=== PATIENT | female | born 1990 | race Caucasian/White ===

== ENCOUNTER → 2016-10-26 | Outpatient (CLI) | payer BC ==
[~2016-10-26] MED LIST: AMOX-358 PO; AMPI500C9 PO; DCS100C PO; DICL500C; DOCU100C37 PO; HYDR-3720 PO; IBUP-1780 PO; Ibuprofen PO; KETO10TA PO; LACT1CAP8 PO; OXYC-465 PO; PREN1TAB25 PO; SMT80CT PO
== END ==
LOC: LAB 19:39
PROVIDERS: ATTEND Nurse Practitioner Family
DX: R30.0 Dysuria (principal)
CPT/HCPCS: 87088

== ENCOUNTER 2016-10-30 19:02 | Emergency (ER) | payer BC, MEDICAID ==
[~2016-10-30] VITALS: Ht 175.3 cm; Wt 61.2 kg
[~2016-10-30 19:02] MED LIST changes: -AMPI500C9 PO; -KETO10TA PO; -LACT1CAP8 PO
[2016-10-30 19:42] LABS: BILIRUBIN,URINE NEGATIVE (NEGATIVE); KETONES,URINE NEGATIVE (NEGATIVE); LEUKOCYTE ESTERASE ,URINE NEGATIVE (NEGATIVE); NITRITE,URINE NEGATIVE (NEGATIVE); PH,URINE 7 (5-9); PROTEIN,URINE NEGATIVE (NEGATIVE); UROBILINOGEN,URINE NORMAL (NORMAL)
[2016-10-30] MEDS ORDERED: KETOROLAC 30 MG/ML VIAL IVP STA (19:59)
[2016-10-30] MEDS ORDERED: LACTATED RINGERS 1,000 ML IV ONE ×2 (19:59→20:10)
[2016-10-30 20:00] LABS: SQUAMOUS EPITHELIAL CELL,UR 0-2 /HPF
--- NOTE | 2016-10-30 20:06 | ED GU-Female ---
General Chief Complaint: -Female Stated Complaint: LOWER ABD AND BACK PAIN, CHILLS Nursing Triage Note: c/o urinary symptoms x 2 weeks. Pt was seen recently as [facility] and started on Bactrim but states no improvment. Nursing Sepsis Screen: No Definite Risk Source: patient History of Present Illness Time seen by provider: 19:22 Initial Comments PT C/O UTI SYMPTOMS FOR 2 WEEKS HAS HAD CHRONIC UTI'S ALL OF HER LIFE HAS BEEN TO DR. CAMPOS AND CYSTOSCOPY DONE. HAS BEEN PRESCRIBED MACROBID AFTER INTERCOURSE, BUT OTHERWISE NO MAINTENANCE ANTIBIOTICS. HAS NOT HAD INTERCOURSE RECENTLY, SO HAS NOT USED ANY MACROBID STATES SHE HAS LOWER ABDOMINAL PAIN, AND STARTED WITH RIGHT FLANK PAIN AND NOW BILATERAL FLANK PAIN--IS PT'S NORMAL UTI SYMPTOMS NO BURNING, URGENCY OR FREQUENCY, BUT THIS IS NORMAL FOR PT TO NOT HAVE THOSE SYMPTOMS WITH UTI'S WAS SEEN AT [facility] ON Tuesday10/27/16, AND WAS GIVEN RX FOR BACTRIM X 7 DAYS SYMPTOMS ARE GETTING WORSE, AND HAS BEEN HAVING CHILLS ALL DAY NO NAUSEA/VOMITING\ FEELS VERY CONSTIPATED, BUT DID HAVE A NORMAL BM TODAY PCP: DR. WAN--HAS NOT SEEN IN A COUPLE OF YEARS UROLOGIST: DR. CAMPOS--HAS NOT SEEN IN QUITE SOME TIME Allergies and Home Medications Allergies Coded Allergies: No Known Drug Allergies (Unverified , 02/03/14) Home Medications Amoxicillin/Potassium Clav 1 Each Tablet, 1 EACH PO BID, #20 Ref 0 Prescribed by: CONSTANTINO MENENDEZ on 01/07/16 1422 Ampicillin Trihydrate 500 Mg Capsule, 500 MG PO TID, #45 FOR INFECTION Prescribed by: DILCIA DENTON on 10/30/16 2133 Dicloxacillin Sodium 500 Mg Capsule, #21 (Reported) Docusate Sodium 100 Mg Capsule, 100 MG PO BID, #60 Prescribed by: CRISTIAN MACDONALD on 01/01/16 0754 Ibuprofen 800 Mg Tablet, 800 MG PO Q6H, #60 Prescribed by: CRISTIAN MACDONALD on 01/01/16 0754 Ketorolac Tromethamine 10 Mg Tablet, 10 MG PO Q6H, #15 Prescribed by: DILCIA DENTON on 10/30/16 2133 Lactobacillus Acidophilus 1 Each Capsule, 2 EACH PO QID, #80 Prescribed by: DILCIA DENTON on 10/30/16 2133 Oxycodone HCl/Acetaminophen 1 Each Tablet, 1-2 TAB PO Q4H PRN for PAIN, #60 Prescribed by: CRISTIAN MACDONALD on 01/01/16 0754 Vit#96/Ferrous Fum/Fa 1 Each Tablet, 1 TAB PO DAILY, (Reported) Constitutional: see HPI, chills, No fever, malaise (C/O MUCH FATIGUE) Respiratory: no symptoms reported Cardiovascular: no symptoms reported Gastrointestinal: see HPI, abdominal pain, constipation, No diarrhea, No nausea , No vomiting Genitourinary: see HPI, flank pain : No (NO CONTROL) LMP: Oct 08, 2016 Musculoskeletal: see HPI, back pain Skin: no symptoms reported Psychiatric/Neurological: No Symptoms Reported Past Zetqqgv-[id number]-Rpxwoi Hx Patient Social History Alcohol Use: Denies Use Recreational Drug Use: No Smoking Status: Never a Smoker Recent Foreign Travel: No Contact w/Someone Who Travel: No Recent Infectious Disease Expo: No Immunizations Up To Date Tetanus Booster (TDap): Less than 5yrs PED Vaccines UTD: Yes Surgeries HX Surgeries: Yes (BREAST AUGMENTATION; DENTAL SURGERY; X2; CYSTOSCOPY) Surgeries: Adenoidectomy, Section, Tonsillectomy Respiratory Hx Respiratory Disorders: No Cardiovascular Hx Cardiac Disorders: No Neurological Hx Neurological Disorders: No Reproductive System : No Hx Reproductive Disorders: No Female Reproductive Disorders: Denies Genitourinary Hx Genitourinary Disorders: Yes Genitourinary Disorders: UTI-Chronic Gastrointestinal Hx Gastrointestinal Disorders: No Musculoskeletal Hx Musculoskeletal Disorders: No Endocrine Hx Endocrine Disorders: No HEENT HX ENT Disorders: Yes HEENT Disorders: Tonsilitis Cancer Hx Cancer: No Psychosocial Hx Psychiatric Problems: No Integumentary HX Skin/Integumentary Disorder: No Blood Transfusions Hx Blood Disorders: No Adverse Reaction to a Blood Tr: No Family Medical History Family Medial History: Alcoholism 19 FATHER Cardiovascular disease 19 FATHER Completed stroke 19 FATHER Hypertension 19 FATHER No Family History of: AIDS Abdominal aortic aneurysm [place]'s disease Alzheimer's disease Aphasia Arthritis Asthma Cancer of mouth Colon cancer Congenital disease Congenital heart disease Coronary thrombosis Cystic fibrosis Deafness or hearing loss Dementia Diabetes mellitus Drug abuse Dysphasia Fibrocystic disease of breast Gastroenteritis Glaucoma Headache disorder Hypercholesterolemia Infertility Kidney disease Myocardial infarction Neoplasm Not obtainable due to adoption Osteoporosis Parkinson's disease Prostate cancer Psychosocial problem Respiratory disorder Seizure disorder Severe allergy Thyroid disease Tuberculosis Visual disorder Physical Exam Vital Signs Vital Sign - Last 12Hours 10/30/16 19:15 Temp 98.0 Pulse 72 Resp 16 B/P (MAP) 126/81 Pulse Ox 98 O2 Delivery Room Air Capillary Refill : Less Than 3 Seconds General Appearance: WD/WN, no apparent distress Cardiovascular: regular rate, rhythm, no murmur Respiratory: normal breath sounds Gastrointestinal: normal bowel sounds, soft, no organomegaly, no pulsatile mass , No tenderness (SUPRAPUBIC) Back: no vertebral tenderness, CVA tenderness (R), CVA tenderness (L) Extremities: normal inspection Neurologic/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, no motor/sensory deficits, alert, normal mood/affect, oriented x 3 Skin: normal color, warm/dry, No rash Progress/Results/Core Measures Results/Orders Lab Results Laboratory Tests Test 10/30/16 19:20 10/30/16 20:15 Range/Units Urine Color YELLOW Urine Clarity SLIGHTLY CLOUDY Urine pH 7 5-9 Urine Specific [place] 1.005 L 1.016-1.022 Urine Protein NEGATIVE NEGATIVE Urine Glucose (UA) NEGATIVE NEGATIVE Urine Ketones NEGATIVE NEGATIVE Urine Nitrite NEGATIVE NEGATIVE Urine Bilirubin NEGATIVE NEGATIVE Urine Urobilinogen NORMAL NORMAL MG/DL Urine Leukocyte Esterase NEGATIVE NEGATIVE Urine RBC (Auto) NEGATIVE NEGATIVE Urine RBC NONE /HPF Urine WBC NONE /HPF Urine Squamous Epithelial Cells 0-2 /HPF Urine Crystals NONE /LPF Urine Bacteria FEW H /HPF Urine Casts NONE /LPF Urine Mucus NEGATIVE /LPF Urine Culture Indicated YES White Blood Count 5.9 4.3-11.0 10^3/uL Red Blood Count 4.78 4.35-5.85 10^6/uL Hemoglobin 14.1 11.5-16.0 G/DL Hematocrit 42 35-52 % Mean Corpuscular Volume 89 80-99 FL Mean Corpuscular Hemoglobin 30 25-34 PG Mean Corpuscular Hemoglobin Concent 33 32-36 G/DL Red Cell Distribution Width 13.9 10.0-14.5 % Platelet Count 198 130-400 10^3/uL Mean Platelet Volume 10.6 H 7.4-10.4 FL Neutrophils (%) (Auto) 48 42-75 % Lymphocytes (%) (Auto) 39 12-44 % Monocytes (%) (Auto) 10 0-12 % Eosinophils (%) (Auto) 3 0-10 % Basophils (%) (Auto) 1 0-10 % Neutrophils # (Auto) 2.8 1.8-7.8 X 10^3 Lymphocytes # (Auto) 2.3 1.0-4.0 X 10^3 Monocytes # (Auto) 0.6 0.0-1.0 X 10^3 Eosinophils # (Auto) 0.2 0.0-0.3 10^3/uL Basophils # (Auto) 0.1 0.0-0.1 10^3/uL Sodium Level 137 135-145 MMOL/L Potassium Level 3.9 3.6-5.0 MMOL/L Chloride Level 104 98-107 MMOL/L Carbon Dioxide Level 21 21-32 MMOL/L Anion Gap 12 5-14 MMOL/L Blood Urea Nitrogen 14 7-18 MG/DL Creatinine 0.85 0.60-1.30 MG/DL Estimat Glomerular Filtration Rate > 60 BUN/Creatinine Ratio 16 Glucose Level 84 70-105 MG/DL Calcium Level 9.6 8.5-10.1 MG/DL Total Bilirubin 0.4 0.1-1.0 MG/DL Aspartate Amino Transf (AST/SGOT) 26 5-34 U/L Alanine Aminotransferase (ALT/SGPT) 23 0-55 U/L Alkaline Phosphatase 44 40-136 U/L Total Protein 8.1 6.4-8.2 G/DL Albumin 4.9 H 3.2-4.5 G/DL Amylase Level 44 25-125 U/L Lipase 30 8-78 U/L My Orders Orders - DILCIA DENTON K DO Ua Culture If Indicated (10/30/16 19:23) Urine Bedside (10/30/16 19:23) Ct Abd/Pelvis Wo(Kidney Stone) (10/30/16 19:59) Amylase (10/30/16 19:59) Cbc With Automated Diff (10/30/16 19:59) Comprehensive Metabolic Panel (10/30/16 19:59) Lipase (10/30/16 19:59) Acute Abd Series (10/30/16 19:59) Ketorolac Injection (Toradol Injection) (10/30/16 19:59) Saline Lock/Iv-Start (10/30/16 19:59) Lactated Ringers (Lr 1000 Ml Iv Solution (10/30/16 19:59) Urine Culture (10/30/16 19:20) Rx-Penicillin Vk Tablet (Rx-Pen-Vee K Ta (10/30/16 21:17) Ketorolac Injection (Toradol Injection) (10/30/16 20:10) Lactated Ringers (Lr 1000 Ml Iv Solution (10/30/16 20:10) Medications Given in ED Current Medications Medications Dose Ordered Sig/Benjie Route Start Time Stop Time Status Last Admin Dose Admin Lactated Ringer's 1,000 ml @ 0 mls/hr Q0M ONCE IV 10/30/16 19:59 10/30/16 21:27 DC 10/30/16 20:16 0 MLS/HR Vital Signs/I&O Vital Sign - Last 12Hours 10/30/16 10/30/16 10/30/16 19:15 21:17 21:49 Temp 98.0 98.0 98.0 Pulse 72 68 Resp 16 16 B/P (MAP) 126/81 Pulse Ox 98 98 O2 Delivery Room Air Blood Pressure Mean: 96 Point of Care Testing Urine -Bedside: Positive Progress Note : Progress Note PAIN RESOLVED WITH TORADOL Diagnostic Imaging Comments ACUTE ABDOMEN XRAYS--NO ACUTE PROCESS, PER RADIOLOGIST REPORT CT ABDOMEN /PELVIS--TINY, PUNCTATE RIGHT RENAL STONE-NO OBSTRUCTIVE UROPATHY, MODERATELY SEVERE FECAL RETENTION-NO OBSTRUCTION. PROBABLE LEFT ADNEXAL DERMOID MASS. PER RADIOLOGIST REPORTS @ 8178 Reviewed: Reviewed by Me Departure Impression Impression: Primary Impression: Urinary tract infection Additional Impressions: Constipation LEFT ADNEXAL DERMOID Disposition: HOME, SELF-CARE Condition: Improved Departure-Patient Inst. Referrals: FLORES WAN MD (PCP/Family) Primary Care Physician Patient Instructions: Ovarian Cyst (DC), Urinary Tract Infection, Adult (DC) Add. Discharge Instructions: LOTS OF CLEAR LIQUIDS STOP BACTRIM FOLLOW UP WITH YOUR DR NEXT WEEK FOR RECHECK All discharge instructions reviewed with patient and/or family. Voiced understanding. Scripts Lactobacillus Acidophilus (Acidophilus) 1 Each Capsule 2 EACH PO QID, #80 CAP Prov: DILCIA DENTON DO 10/30/16 Ketorolac Tromethamine (Ketorolac Tromethamine) 10 Mg Tablet 10 MG PO Q6H for Pain, #15 TAB Prov: DILCIA DENTON DO 10/30/16 Ampicillin Trihydrate (Ampicillin Trihydrate) 500 Mg Capsule 500 MG PO TID, #45 CAP FOR INFECTION Prov: DILCIA DENTON DO 10/30/16 DILCIA DENTON DO Oct 30, 2016 20:06
[2016-10-30] MEDS ORDERED: KETOROLAC 30 MG/ML VIAL ONE (20:10)
[2016-10-30 20:30] LABS: BASOPHILS # (AUTO) 0.1 10^3/uL (0.0-0.1); BASOPHILS % (AUTO) 1 % (0-10); EOSINOPHILS # (AUTO) 0.2 10^3/uL (0.0-0.3); EOSINOPHILS % (AUTO) 3 % (0-10); LYMPHOCYTES # (AUTO) 2.3 X 10^3 (1.0-4.0); LYMPHOCYTES % (AUTO) 39 % (12-44); MEAN CORPUSCULAR HEMOGLOBIN 30 PG (25-34); MEAN CORPUSCULAR HGB CONC 33 G/DL (32-36); MEAN CORPUSCULAR VOLUME 89 FL (80-99); MEAN PLATELET VOLUME 10.6 FL (7.4-10.4); MONOCYTES # (AUTO) 0.6 X 10^3 (0.0-1.0); MONOCYTES % (AUTO) 10 % (0-12); NEUTROPHILS # (AUTO) 2.8 X 10^3 (1.8-7.8); NEUTROPHILS % (AUTO) 48 % (42-75); PLATELET COUNT 198 10^3/uL (130-400); RED BLOOD COUNT 4.78 10^6/uL (4.35-5.85); RED CELL DISTRIBUTION WIDTH 13.9 % (10.0-14.5); WHITE BLOOD COUNT 5.9 10^3/uL (4.3-11.0)
[2016-10-30 20:51] LABS: ALANINE AMINOTRANSFERASE 23 U/L (0-55); ALBUMIN 4.9 G/DL (3.2-4.5); AMYLASE 44 U/L (25-125); ANION GAP 12 MMOL/L (5-14); ASPARTATE AMINO TRANSFERASE 26 U/L (5-34); BILIRUBIN,TOTAL 0.4 MG/DL (0.1-1.0); BLOOD UREA NITROGEN 14 MG/DL (7-18); BUN/CREATININE RATIO 16; CALCIUM 9.6 MG/DL (8.5-10.1); CARBON DIOXIDE 21 MMOL/L (21-32); CHLORIDE 104 MMOL/L (98-107); CREATININE SERUM 0.85 MG/DL (0.60-1.30); GFR ESTIMATED > 60; GLUCOSE 84 MG/DL (70-105); LIPASE 30 U/L (8-78); POTASSIUM 3.9 MMOL/L (3.6-5.0); SODIUM 137 MMOL/L (135-145); TOTAL PROTEIN 8.1 G/DL (6.4-8.2)
--- NOTE | 2016-10-30 21:02 | Diagnostic Imaging Report ---
PROCEDURE: CT urinary tract, rule out kidney stone. TECHNIQUE: Multiple contiguous axial images were obtained through the abdomen and pelvis without the use of intravenous contrast. INDICATION: Bilateral anterior and posterior pain. CORRELATION STUDY: 01/07/2016. FINDINGS: Lung bases are clear. Bilateral breast implants are present. EG junction is relatively unremarkable. The unenhanced liver, spleen, pancreas, gallbladder and adrenal glands appear unremarkable. Abdominal aorta is normal in contour. Kidneys are unremarkable. Tiny punctate calcifications of the right kidney. Ureter is incompletely traceable but demonstrates no definitive calcification along the expected course or evidence for hydronephrosis. There is moderate severity fecal retention throughout the colon. The cecum sits very low within the pelvis near midline. The appendix projects along the presacral region up towards the lower lumbar spine appears unremarkable. Small bowel is diffusely distended with gas. A few mildly prominent fluid-filled small bowel noted in the pelvis. No definitive evidence for obstruction. The urinary bladder unremarkable. Uterus is mildly prominent and is slightly deviated towards the left. There is a mixed density mass within the left adnexa, likely reflective of a dermoid. This appears to be changed from prior study and currently measures 3.8 x 2.3 cm. Small amount of free pelvic fluid. The previously noted inflammatory change about the lower abdominal wall and intra-abdominal fluid collection have resolved. Likely some residual scarring in this area. IMPRESSION: 1. Tiny punctate right renal stone. No suggestion for obstructive uropathy. 2. Moderate severity fecal retention. Definitive for obstruction or formation is not very present. Normal appendix. 3. Probable left adnexal dermoid mass. Uterus is enlarged but significantly less severe than on prior study. Present abdominal wall fluid collection, premature changes appears resolved. Trace free pelvic fluid may be physiologic. Dictated by: Dictated on workstation # [id number]
[2016-10-30 21:17] VITALS: BP 124/80
[2016-10-30] MEDS ORDERED: RX-PENICILLIN V K 250MG TAB PPK#4 PO STA (21:17)
--- NOTE | 2016-10-30 21:18 | Diagnostic Imaging Report ---
INDICATION: Abdominal pain. TECHNIQUE: Single view chest with supine and upright radiographs of the abdomen. CORRELATION STUDY: None. FINDINGS: Frontal radiograph of the chest demonstrates no acute abnormality. Imaging of the abdomen demonstrates moderate severity fecal retention. Prominent gas-filled loops of bowel throughout the abdomen including gas-distention of the stomach. However, no findings to suggest bowel obstruction. IMPRESSION: 1. Negative for acute cardiopulmonary abnormality. 2. There is bowel gas distention. No evidence for obstruction. Dictated by: Dictated on workstation # [id number]
[2016-10-30] MEDS ORDERED: KETO10TA PO ×2 (21:21→21:33)
[2016-10-30] MEDS ORDERED: AMPI500C9 PO ×2 (21:21→21:33)
[2016-10-30] MEDS ORDERED: LACT1CAP8 PO ×2 (21:22→21:33)
== END 2016-10-30 21:27 | disposition home or self-care (01) ==
LOC: EDUNIT# 19:02 → ER 19:04
DX: N39.0 Urinary tract infection, site not specified (principal); N20.0 Calculus of kidney; D28.7 Benign neoplasm of other specified female genital organs; K59.00 Constipation, unspecified; Z79.899 Other long term (current) drug therapy
CPT/HCPCS: 36415; 74022; 74176; 80053; 81000; 82150; 83690; 84703; 85025; 87088; 96361; 96374

== ENCOUNTER 2017-01-16 12:53 | Emergency (ER) | payer MEDICAID ==
[~2017-01-16] VITALS: Ht 175.3 cm; Wt 61.2 kg
[~2017-01-16 12:53] MED LIST changes: +AMPI500C9 PO; +KETO10TA PO; +LACT1CAP8 PO
--- NOTE | 2017-01-16 13:16 | ED General ---
General Chief Complaint: General Problems/Pain Stated Complaint: MUSCLE PAIN, WEAKNESS, FATIGUE Nursing Triage Note: Patient advises approx. 3 weeks ago she removed a tick from her body and for the past two weeks has become increasingly fatigued and has been experiencing muscle ache and fatigue. Nursing Sepsis Screen: No Definite Risk Source of Information: Patient Exam Limitations: No Limitations History of Present Illness Time Seen by Provider: 13:11 Initial Comments This 26-year-old white female presents with a history of fatigue, myalgias or general malaise for the last 3 weeks after removing a tick from her left forearm. The patient has had the no associated photophobia but has had symptoms suggestive of nuchal rigidity. The patient denies nausea, vomiting, dysuria, frequency, rash, or joint effusion or limitation. Patient is a white female. She is taking no medications currently. Patient's primary care physician is Dr. Pacheco. Allergies and Home Medications Allergies Coded Allergies: No Known Drug Allergies (Unverified , 02/03/14) Home Medications Amoxicillin/Potassium Clav 1 Each Tablet, 1 EACH PO BID, #20 Ref 0 Prescribed by: CONSTANTINO MENENDEZ on 01/07/16 1422 Ampicillin Trihydrate 500 Mg Capsule, 500 MG PO TID, #45 FOR INFECTION Prescribed by: DILCIA DENTON on 10/30/16 2133 Dicloxacillin Sodium 500 Mg Capsule, #21 (Reported) Docusate Sodium 100 Mg Capsule, 100 MG PO BID, #60 Prescribed by: CRISTIAN MACDONALD on 01/01/16 0754 Ibuprofen 800 Mg Tablet, 800 MG PO Q6H, #60 Prescribed by: CRISTIAN MACDONALD on 01/01/16 0754 Ketorolac Tromethamine 10 Mg Tablet, 10 MG PO Q6H, #15 Prescribed by: DILCIA DENTON on 10/30/16 2133 Lactobacillus Acidophilus 1 Each Capsule, 2 EACH PO QID, #80 Prescribed by: DILCIA DENTON on 10/30/16 2133 Oxycodone HCl/Acetaminophen 1 Each Tablet, 1-2 TAB PO Q4H PRN for PAIN, #60 Prescribed by: CRISTIAN MACDONALD on 01/01/16 0754 Vit#96/Ferrous Fum/Fa 1 Each Tablet, 1 TAB PO DAILY, (Reported) Constitutional: see HPI, malaise EENTM: No ear pain, No eye pain Respiratory: No cough, No short of breath Cardiovascular: No chest pain Gastrointestinal: No abdominal pain, No diarrhea, No nausea, No vomiting Genitourinary: No decreased output, No dysuria, No frequency : No LMP: Jan 16, 2017 Musculoskeletal: back pain, joint pain, No joint swelling, muscle pain, muscle stiffness Skin: No rash Psychiatric/Neurological: No Symptoms Reported Hematologic/Lymphatic: No Symptoms Reported Past Emgkwzn-Sokcus-Cjjmig Hx Patient Social History Alcohol Use: Denies Use Recreational Drug Use: No Recent Foreign Travel: No Contact w/Someone Who Travel: No Recent Infectious Disease Expo: No Recent Hopitalizations: No Immunizations Up To Date Tetanus Booster (TDap): Less than 5yrs PED Vaccines UTD: Yes Seasonal Allergies Seasonal Allergies: No Surgeries HX Surgeries: Yes (BREAST AUGMENTATION; DENTAL SURGERY; X2; CYSTOSCOPY) Surgeries: Adenoidectomy, Section, Tonsillectomy Respiratory Hx Respiratory Disorders: No Cardiovascular Hx Cardiac Disorders: No Neurological Hx Neurological Disorders: No Reproductive System : No Hx Reproductive Disorders: No Female Reproductive Disorders: Denies Genitourinary Hx Genitourinary Disorders: Yes Genitourinary Disorders: UTI-Chronic Gastrointestinal Hx Gastrointestinal Disorders: No Musculoskeletal Hx Musculoskeletal Disorders: No Endocrine Hx Endocrine Disorders: No HEENT HX ENT Disorders: Yes HEENT Disorders: Tonsilitis Cancer Hx Cancer: No Psychosocial Hx Psychiatric Problems: No Integumentary HX Skin/Integumentary Disorder: No Blood Transfusions Hx Blood Disorders: No Adverse Reaction to a Blood Tr: No Reviewed Nursing Assessment Reviewed/Agree w Nursing PMH: Yes Family Medical History Family Medial History: Alcoholism 19 FATHER Cardiovascular disease 19 FATHER Completed stroke 19 FATHER Hypertension 19 FATHER No Family History of: AIDS Abdominal aortic aneurysm [place] disease Alzheimer's disease Aphasia Arthritis Asthma Cancer of mouth Colon cancer Congenital disease Congenital heart disease Coronary thrombosis Cystic fibrosis Deafness or hearing loss Dementia Diabetes mellitus Drug abuse Dysphasia Fibrocystic disease of breast Gastroenteritis Glaucoma Headache disorder Hypercholesterolemia Infertility Kidney disease Myocardial infarction Neoplasm Not obtainable due to adoption Osteoporosis Parkinson's disease Prostate cancer Psychosocial problem Respiratory disorder Seizure disorder Severe allergy Thyroid disease Tuberculosis Visual disorder Physical Exam Vital Signs Vital Sign - Last 12Hours 01/16/17 13:04 Temp 98.7 Pulse 86 Resp 14 B/P (MAP) 140/91 Pulse Ox 98 O2 Delivery Room Air Capillary Refill : Less Than 3 Seconds General Appearance: No Apparent Distress, WD/WN Eyes: Right Eye Normal Inspection HEENT: Normal ENT Inspection Neck: Normal Inspection Respiratory: Lungs Clear, Normal Breath Sounds Cardiovascular: Regular Rate, Rhythm Gastrointestinal: Normal Bowel Sounds, Non Tender, Soft Extremity: Normal Inspection, Normal Range of Motion, Non Tender Neurologic/Psychiatric: Alert, Oriented x3, No Motor/Sensory Deficits Skin: Normal Color, Warm/Dry, No Rash Progress/Results/Core Measures Results/Orders Lab Results Laboratory Tests Test 01/16/17 13:16 01/16/17 13:22 Range/Units White Blood Count 5.4 4.3-11.0 10^3/uL Red Blood Count 4.57 4.35-5.85 10^6/uL Hemoglobin 13.6 11.5-16.0 G/DL Hematocrit 42 35-52 % Mean Corpuscular Volume 92 80-99 FL Mean Corpuscular Hemoglobin 30 25-34 PG Mean Corpuscular Hemoglobin Concent 33 32-36 G/DL Red Cell Distribution Width 13.2 10.0-14.5 % Platelet Count 221 130-400 10^3/uL Mean Platelet Volume 10.0 7.4-10.4 FL Neutrophils (%) (Auto) 54 42-75 % Lymphocytes (%) (Auto) 34 12-44 % Monocytes (%) (Auto) 9 0-12 % Eosinophils (%) (Auto) 2 0-10 % Basophils (%) (Auto) 0 0-10 % Neutrophils # (Auto) 2.9 1.8-7.8 X 10^3 Lymphocytes # (Auto) 1.8 1.0-4.0 X 10^3 Monocytes # (Auto) 0.5 0.0-1.0 X 10^3 Eosinophils # (Auto) 0.1 0.0-0.3 10^3/uL Basophils # (Auto) 0.0 0.0-0.1 10^3/uL Sodium Level 138 135-145 MMOL/L Potassium Level 3.9 3.6-5.0 MMOL/L Chloride Level 103 98-107 MMOL/L Carbon Dioxide Level 24 21-32 MMOL/L Anion Gap 11 5-14 MMOL/L Blood Urea Nitrogen 14 7-18 MG/DL Creatinine 0.73 0.60-1.30 MG/DL Estimat Glomerular Filtration Rate > 60 BUN/Creatinine Ratio 19 Glucose Level 135 H 70-105 MG/DL Calcium Level 9.4 8.5-10.1 MG/DL Total Bilirubin 0.4 0.1-1.0 MG/DL Aspartate Amino Transf (AST/SGOT) 26 5-34 U/L Alanine Aminotransferase (ALT/SGPT) 21 0-55 U/L Alkaline Phosphatase 45 40-136 U/L C-Reactive Protein High Sensitivity 0.10 0.00-0.50 MG/DL Total Protein 7.6 6.4-8.2 GM/DL Albumin 4.3 3.2-4.5 GM/DL Urine Color YELLOW Urine Clarity CLEAR Urine pH 6.5 5-9 Urine Specific [place] 1.010 L 1.016-1.022 Urine Protein NEGATIVE NEGATIVE Urine Glucose (UA) NEGATIVE NEGATIVE Urine Ketones NEGATIVE NEGATIVE Urine Nitrite NEGATIVE NEGATIVE Urine Bilirubin NEGATIVE NEGATIVE Urine Urobilinogen NORMAL NORMAL MG/DL Urine Leukocyte Esterase NEGATIVE NEGATIVE Urine RBC (Auto) 4+ H NEGATIVE Urine RBC NONE /HPF Urine WBC NONE /HPF Urine Squamous Epithelial Cells 10-25 H /HPF Urine Crystals NONE /LPF Urine Bacteria NEGATIVE /HPF Urine Casts NONE /LPF Urine Mucus NEGATIVE /LPF Urine Culture Indicated NO My Orders Orders - CARLOS BROWN MD Cbc With Automated Diff (01/16/17 13:08) Comprehensive Metabolic Panel (01/16/17 13:08) Hs C Reactive Protein (01/16/17 13:08) Ua Culture If Indicated (01/16/17 13:08) Tick Panel With Lyme Eia (01/16/17 13:08) Vital Signs/I&O Vital Sign - Last 12Hours 01/16/17 13:04 Temp 98.7 Pulse 86 Resp 14 B/P (MAP) 140/91 Pulse Ox 98 O2 Delivery Room Air Blood Pressure Mean: 107 Progress Note : Time: 14:12 Progress Note The patient's laboratory evaluation was essentially unremarkable. The patient' s tick panel is pending. I discussed findings with patient. As an a plasmapheresis is a possibility despite the lack of leukopenia or thrombocytopenia on her CBC she was given doxycycline 100 mg twice a day for 2 weeks. I asked she follow-up closely with her physician, Dr. Pacheco\. I asked she return to emergency department if she had any further problems or questions. Departure Impression Impression: Primary Impression: Anaplasmosis Disposition: HOME, SELF-CARE Condition: Unchanged Departure-Patient Inst. Decision time for Depature: 14:14 Referrals: FLORES PACHECO MD (PCP/Family) Primary Care Physician Add. Discharge Instructions: Doxycycline as prescribed. Close follow-up Dr. Pacheco. Return if any problems. All discharge instructions reviewed with patient and/or family. Voiced understanding. CARLOS BROWN MD Jan 16, 2017 13:16
[2017-01-16 13:31] LABS: BASOPHILS % (AUTO) 0 % (0-10); EOSINOPHILS # (AUTO) 0.1 10^3/uL (0.0-0.3); EOSINOPHILS % (AUTO) 2 % (0-10); LYMPHOCYTES # (AUTO) 1.8 X 10^3 (1.0-4.0); LYMPHOCYTES % (AUTO) 34 % (12-44); MEAN CORPUSCULAR HEMOGLOBIN 30 PG (25-34); MEAN CORPUSCULAR HGB CONC 33 G/DL (32-36); MEAN CORPUSCULAR VOLUME 92 FL (80-99); MONOCYTES # (AUTO) 0.5 X 10^3 (0.0-1.0); MONOCYTES % (AUTO) 9 % (0-12); NEUTROPHILS # (AUTO) 2.9 X 10^3 (1.8-7.8); NEUTROPHILS % (AUTO) 54 % (42-75); PLATELET COUNT 221 10^3/uL (130-400); RED BLOOD COUNT 4.57 10^6/uL (4.35-5.85); RED CELL DISTRIBUTION WIDTH 13.2 % (10.0-14.5); WHITE BLOOD COUNT 5.4 10^3/uL (4.3-11.0)
[2017-01-16 13:31] LABS: BILIRUBIN,URINE NEGATIVE (NEGATIVE); KETONES,URINE NEGATIVE (NEGATIVE); LEUKOCYTE ESTERASE ,URINE NEGATIVE (NEGATIVE); NITRITE,URINE NEGATIVE (NEGATIVE); PH,URINE 6.5 (5-9); PROTEIN,URINE NEGATIVE (NEGATIVE); UROBILINOGEN,URINE NORMAL (NORMAL)
[2017-01-16 13:50] LABS: ALANINE AMINOTRANSFERASE 21 U/L (0-55); ALBUMIN 4.3 GM/DL (3.2-4.5); ANION GAP 11 MMOL/L (5-14); ASPARTATE AMINO TRANSFERASE 26 U/L (5-34); BILIRUBIN,TOTAL 0.4 MG/DL (0.1-1.0); BLOOD UREA NITROGEN 14 MG/DL (7-18); BUN/CREATININE RATIO 19; CALCIUM 9.4 MG/DL (8.5-10.1); CARBON DIOXIDE 24 MMOL/L (21-32); CHLORIDE 103 MMOL/L (98-107); CREATININE SERUM 0.73 MG/DL (0.60-1.30); GFR ESTIMATED > 60; GLUCOSE 135 MG/DL (70-105); POTASSIUM 3.9 MMOL/L (3.6-5.0); SODIUM 138 MMOL/L (135-145); TOTAL PROTEIN 7.6 GM/DL (6.4-8.2)
[2017-01-16 14:21] VITALS: BP 105/83
== END 2017-01-16 14:21 | disposition home or self-care (01) ==
LOC: EDUNIT# 12:53 → ER 12:55
DX: A77.49 Other ehrlichiosis (principal); Z87.59 Personal history of other complications of pregnancy, childbirth and the puerperium; Z82.49 Family history of ischemic heart disease and other diseases of the circulatory system
CPT/HCPCS: 36415; 80053; 81000; 85025; 86141; 86618; 86666; 86668; 86757; 99283